=== PATIENT | male | born 1940 | race Caucasian/White ===

== ENCOUNTER → 2016-03-11 | Outpatient (CLI) | payer MEDICARE, BC | LOC: GMAJ 14:25 | PROVIDERS: ATTEND Family Medicine | DX: R06.02 Shortness of breath (principal) ==

== ENCOUNTER → 2016-06-26 | Outpatient (CLI) | payer MEDICARE, BC | LOC: GMAJ 13:58 | PROVIDERS: ATTEND Family Medicine | DX: I73.9 Peripheral vascular disease, unspecified (principal); K92.0 Hematemesis ==

== ENCOUNTER → 2016-06-28 | Outpatient (CLI) | payer MEDICARE, BC | END | disposition home or self-care (01) | LOC: GMAJ 11:20 | PROVIDERS: ATTEND Family Medicine | DX: D50.8 Other iron deficiency anemias (principal); R41.3 Other amnesia ==

== ENCOUNTER → 2016-08-14 | Outpatient (CLI) | payer MEDICARE, BC ==
--- NOTE | 2016-08-14 12:54 | US ---
EXAM DESCRIPTION: Liver CLINICAL HISTORY: 75 years,Male,UNSPECIFIED CIRRHOSIS OF LIVER COMPARISON: None TECHNIQUE: Multiple real-time sonographic images were obtained of the right upper quadrant. FINDINGS: The liver demonstrates decreased echotexture. No masses. No cysts. It measures 16.8 cm in craniocaudal length. Gallbladder demonstrates anechoic lumen. There is no intrahepatic biliary ductal dilatation. The gallbladder wall thickness is unremarkable. No pericholecystic fluid. The common bile duct measures 3 mm in diameter. Right kidney was not evaluated. The pancreas visualized portions of the head and body appear unremarkable. No free fluid in the right upper quadrant. IMPRESSION: Unremarkable ultrasound of the right upper quadrant. Electronically signed by: Aditya Krishnamurthy MD 08/14/2016 12:53 PM CDT
== END | disposition home or self-care (01) ==
LOC: US 08:11
DX: K74.60 Unspecified cirrhosis of liver (principal)

== ENCOUNTER → 2016-08-15 | Outpatient (CLI) | payer MEDICARE ==
--- NOTE | 2016-08-16 09:30 | US ---
EXAM DESCRIPTION: Soft Tissue,Head/Neck CLINICAL HISTORY: 75 years Male, SWELLING, MASS AND LUMP. Progressively enlarging mass in the right neck. Noticed about 2 months ago. COMPARISON: None. TECHNIQUE: Multiple sonographic images of the area of concern in the soft tissues of the right neck. FINDINGS: There is a heterogeneous solid-appearing mass measuring 5.4 x 5.0 x 2.2 cm in the area of concern in the right neck below the patient's ear. IMPRESSION: Indeterminate soft tissue mass in the infra-auricular region of the right neck. This is concerning for a soft tissue mass arising from the parotid gland versus a pathologically enlarged lymph node. Recommend contrast-enhanced CT of the neck to further characterize. In addition, tissue sampling will likely be required. Electronically signed by: Mejia العراقي MD 08/16/2016 9:29 AM CDT
== END | disposition home or self-care (01) ==
LOC: US 11:29
PROVIDERS: ATTEND Nurse Practitioner Family
DX: R22.9 Localized swelling, mass and lump, unspecified (principal)

== ENCOUNTER → 2017-01-13 | Outpatient (CLI) | payer MEDICARE ==
--- NOTE | 2017-01-14 04:11 | CT ---
EXAM DATE: 01/13/2017 10:18 AM [facility]. PROCEDURE: CT NECK WITH IV CONTRAST. INDICATION: LOCALIZED SWELLING, MASS AND LUMP, NECK. COMPARISON: Ultrasound of the neck 08/15/2016. TECHNIQUE: Axial CT images of the neck were obtained after administration of intravenous contrast. Coronal and sagittal reformats were also obtained. This exam was performed according to our departmental dose-optimization program which includes use of Automated Exposure Control, adjustment of the mA and/or kV according to patient size and/or use of iterative reconstruction technique. FINDINGS: Large ill-defined enhancing mass centered within the right neck, approximately lymph node station II. Mass measures 3.8 x 4.7 x 4.5 cm (Transverse x AP x CC). Medially soft tissue mass extends into the parapharyngeal space and region of the deep lobe right parotid gland, encasing the proximal right ECA and ICA as well as the internal jugular vein. There is apparent near complete or complete occlusion of the jugular vein at the level of the mass however more inferiorly the right IJ demonstrates appropriate enhancement. Superiorly mass extends to the level of the mastoid tip however does not result in osseous erosion. Inferiorly the mass extends to level of C3. Laterally mass is inseparable from sternocleidomastoid muscle. Pathologic right level three lymph node image 58 series 2 measuring 1.4 x 1.2 cm. No contralateral suspicious lymphadenopathy is identified. No lymphadenopathy is visualized within the upper mediastinum. Majority of the parotid and submandibular glands are unremarkable. The visualized intracranial contents are unremarkable with exception of calcific atherosclerosis of the ICAs and vertebral arteries. Although there is apparent encasement or abutment of the right proximal ICA and ECA there is no significant stenosis. Unremarkable orbits and paranasal sinuses. Mastoid air cells are clear. Aerodigestive tract demonstrates no masses. Lung apices are clear. IMPRESSION: 4.7 cm ill-defined enhancing mass centered within the right neck at the level two station. Mass is inseparable from the right sternocleidomastoid, causes complete or near complete occlusion of the right IJ, and likely encases the proximal right ECA and ICA. This may represent a malignant neoplasm arising from the deep lobe of the right parotid gland given extension into the parapharyngeal space or malignant bryan conglomerate. There is no significant stenosis of the right ICA or ECA. Right level III bryan metastatic disease. No contralateral or upper mediastinal lymphadenopathy. Electronically signed by: Ganesh Reyes MD 01/14/2017 4:09 AM [facility]
== END | disposition home or self-care (01) ==
LOC: CT 10:11
PROVIDERS: ATTEND Student in an Organized Health Care Education/Training Program
DX: R59.0 Localized enlarged lymph nodes (principal); R22.1 Localized swelling, mass and lump, neck